=== PATIENT | female | born 1945 | race Caucasian/White ===

== ENCOUNTER → 2019-02-03 | Outpatient (CLI) | payer OTHER ==
[~2019-02-03] MED LIST: EVISTA; VICODIN 5-5001 EACH PO
== END ==
LOC: M.CT 14:15
DX: Z13.6 Encounter for screening for cardiovascular disorders (principal); J98.4 Other disorders of lung

== ENCOUNTER 2020-08-10 05:59 | Emergency (ER) | payer MEDICARE, OTHER ==
[~2020-08-10] VITALS: Ht 170.2 cm; Wt 68.0 kg
[2020-08-10 06:54] VITALS: BP 148/78
== END 2020-08-10 06:58 | disposition home or self-care (01) ==
LOC: M.ERS 05:59
DX: R04.0 Epistaxis (principal); Z90.89 Acquired absence of other organs; Z87.442 Personal history of urinary calculi